=== PATIENT | male | born 1990 | race African-American/Black ===

== ENCOUNTER 2020-02-24 14:35 | Emergency (ER) | payer OTHER ==
[~2020-02-24] VITALS: Ht 175.3 cm; Wt 63.5 kg
[2020-02-24] MEDS ORDERED: IBUPROFEN 800800 M1 PO (17:05)
[2020-02-24] MEDS ORDERED: NORCO 10-325 T1 EACH PO (17:36)
[2020-02-24 18:45] VITALS: BP 152/72
== END 2020-02-24 20:10 | disposition home or self-care (01) ==
LOC: ER 14:35
DX: S42.492A Other displaced fracture of lower end of left humerus, initial encounter for closed fracture (principal); X50.1XXA Overexertion from prolonged static or awkward postures, initial encounter; Y93.72 Activity, wrestling; Y92.89 Other specified places as the place of occurrence of the external cause; Y99.9 Unspecified external cause status

== ENCOUNTER → 2020-02-28 | Outpatient (CLI) | payer OTHER ==
[~2020-02-28] MED LIST: IBUPROFEN 800800 M1 PO; NORCO 10-325 T1 EACH PO
== END ==
LOC: LAB 10:18
PROVIDERS: ATTEND Orthopaedic Surgery
DX: Z20.822 Contact with and (suspected) exposure to COVID-19 (principal)